=== PATIENT | female | born 1965 | race Caucasian/White ===

== ENCOUNTER 2018-10-24 14:43 | Emergency (ER) | payer BC ==
[~2018-10-24] VITALS: Ht 157.5 cm; Wt 60.3 kg
[~2018-10-24 14:43] MED LIST: BEN25 PO; FAMO-96 PO; PRED20TA PO
[2018-10-24 14:47] VITALS: BP 154/86; PULSE 120; RESP 18; Ht 157.5 cm; Wt 60.3 kg
[2018-10-24] MEDS ORDERED: DEXAMETHASONE 10 MG/ML 1 ML INJ IM ONE (15:30)
[2018-10-24] MEDS ORDERED: FAMOTIDINE 20 MG TAB PO ONE (15:30)
== END 2018-10-24 15:46 | disposition home or self-care (01) ==
LOC: EDSEX 14:43 → FTE 14:43
DX: R22.0 Localized swelling, mass and lump, head (principal); R07.0 Pain in throat
CPT/HCPCS: 96372; 99284; J1100